=== PATIENT | male | born 1970 | race African-American/Black ===

== ENCOUNTER 2016-08-04 11:41 | Emergency (ER) | payer BC ==
--- NOTE | ~2016-08-04 | EKG ---
PATIENT: NEREYDA BAKER UNIT #: [id number] Ventricular Rate: 66 BPM Atrial Rate: 66 BPM P-R Interval: 124 ms QRS Duration: 82 ms Q-T Interval: 370 ms QTC Calculation(Bezet): 387 ms P [place]: 71 degrees Calculated R [place]: 42 degrees Calculated T [place]: 44 degrees Diagnosis Line: Normal sinus rhythm Diagnosis Line: Normal ECG Diagnosis Line: No previous ECGs available Diagnosis Line: Confirmed by SRIKANTH RIVERO MD ([id number]) on 08/08/2016 Diagnosis Line: 3:31:14 PM INTERPRETING MD: MAT KEBEDE
== END 2016-08-04 11:54 | disposition home or self-care (01) ==
LOC: SED 11:41
DX: R42 Dizziness and giddiness (principal)
CPT/HCPCS: 93005; 99283